=== PATIENT | female | born 1960 | race Caucasian/White ===

== ENCOUNTER 2022-08-25 15:00 | Emergency (ER) | payer MEDICARE, MEDICAID, SELFPAY ==
--- NOTE | ~2022-08-25 | XR_ITS ---
EXAMINATION: XR chest 2V DATE: 08/25/2022 15:37 INDICATION: A few weeks of cough TECHNIQUE: PA and lateral views of the chest were obtained. COMPARISON: None FINDINGS: The lungs are clear with no focal airspace opacities, pulmonary edema, pleural effusion or pneumothor ax. The cardiomediastinal silhouette is normal. Coronary artery stenting. Moderate thoracic spondylos is. IMPRESSION: 1. No acute cardiopulmonary disease. Reviewed, dictated and finalized at location A. RN [employer]
[2022-08-25 15:11] VITALS: BP 132/72; PULSE 81; RESP 16; TEMP 36.9; O2SAT 100
--- NOTE | 2022-08-25 15:11 | ED.URI ---
HPI - URI/Sore Throat General Chief Complaint: Back Pain/Injury Stated Complaint: Chest Congestion/Cough Time Seen by Provider: 08/25/22 15:12 Source: patient and RN notes reviewed History of Present Illness HPI Narrative: Patient is a 62-year-old female who presents to urgent care with complaints of a cough since . Patient states she has had a lot of chest congestion and has been taking Mucinex. Patient is possible. States that she has had intermittent shortness of breath but is having a lot of additional pain. Patient denies any recent fever, nausea or vomiting. Denies of chest pain. Patient has been in contact with both her PCP and her specialist from her kidney transplant. No other acute complaints. No acute distress noted. Patient aware of the plan of care. Some parts of this dictation were generated by voice recognition software and may contain typographical and/or grammatical inaccuracies. Related Data Home Medications Medication Instructions Recorded Confirmed aspirin 81 mg tablet,delayed 81 mg PO DAILY 08/25/22 08/25/22 release biotin 10,000 mcg capsule 10,000 mcg PO DAILY 08/25/22 08/25/22 exenatide microspheres 2 mg/0.85 See Rx Instructions .Route .COMPLEX 08/25/22 08/25/22 mL subcutaneous auto-injector ([employer]) insulin aspart U-100 100 unit/mL See Rx Instructions .Route .COMPLEX 08/25/22 08/25/22 subcutaneous solution (Novolog U-100 Insulin aspart) isosorbide mononitrate 30 mg 30 mg PO DAILY 08/25/22 08/25/22 tablet,extended release 24 hr metoprolol succinate 25 mg 25 mg PO BID 08/25/22 08/25/22 tablet,extended release 24 hr prednisone 5 mg tablet 5 mg PO DAILY 08/25/22 08/25/22 rosuvastatin 20 mg tablet 20 mg PO DAILY 08/25/22 08/25/22 tacrolimus 1 mg capsule, See Rx Instructions .Route .COMPLEX 08/25/22 08/25/22 immediate-release Allergies Allergy/AdvReac Type Severity Reaction Status Date / Time vancomycin Allergy Rash Verified 08/25/22 15:23 codeine AdvReac Nausea and Verified 08/25/22 15:24 Vomiting ibuprofen AdvReac Other Verified 08/25/22 15:25 Review of Systems Review of Systems: CONSTITUTIONAL: Denies fever, chills, or sweats. EYES: Denies visual changes, redness, or discharge. ENT: Denies rhinorrhea, congestion, sore throat, or otalgia. CARDIOVASCULAR: Reports of chest discomfort on movement RESPIRATORY: reports a productive cough and intermittent dyspnea GASTROINTESTINAL: Denies abdominal pain, nausea, vomiting, or diarrhea. GENITOURINARY: Denies dysuria or hematuria. SKIN: Denies rash or itching. MUSCULOSKELETAL: Denies back pain, joint pain, or myalgia. NEUROLOGIC: Denies headache, numbness, or weakness. All other systems reviewed are negative, except as documented in HPI. PMFSH Comments At the time of my signature, I reviewed and agree with the nursing past medical, surgical, social, and family history. There is no relevant family history pertinent to the patient complaint. Exam Narrative: GENERAL: This is a well-nourished, well-developed patient, in no apparent distress. HEAD: normocephalic, atraumatic. EYES: PERRL. Sclera clear/white. Vision is grossly intact. EARS: External ears normal NOSE: External nose normal with no obvious nasal discharge, nares without redness, no rhinorrhea. THROAT: Mucous membranes moist NECK: Neck supple, non-tender without lymphadenopathy, masses or thyromegaly. CARDIOVASCULAR: Regular rate and rhythm. positional chest pains, reproducible with palpation to the anterior right side RESPIRATORY: Clear to auscultation. slightly diminished right lower lobe SKIN: warm, intact with no suspicious lesions or rash, good texture and turgor. NEURO: awake, alert, and oriented to person, place and time. There were no obvious focal neurologic abnormalities. EXTREMITIES: No clubbing, cyanosis, or edema. Course Course Level of Care: Express Care Visit Vital Signs Vital signs: Vital Signs Temperature 98.4
--- NOTE | 2022-08-25 16:23 | ECG_ITS ---
Measurements Intervals [place] Rate: 74 P: 55 WI: 169 QRS: -2 QRSD: 92 T: 48 QT: 357 QTc: 397 Interpretive Statements SINUS RHYTHM NORMAL ECG NO PREVIOUS ECG AVAILABLE FOR COMPARISON Electronically Signed On 08-26-2022 8:06:07 [employer] by Jonathan Sepulveda D.O.
--- NOTE | 2022-08-25 19:24 | PC.NURSE ---
noted after discharge papers signed, original signature page was soiled
== END 2022-08-25 16:20 | disposition left against medical advice (07) ==
PROVIDERS: Emergency Provider Nurse Practitioner Family
DX: R06.02 Shortness of breath (principal); Z79.82 Long term (current) use of aspirin
CPT/HCPCS: 71046; 93005; 99213; G0463

== ENCOUNTER 2023-04-13 09:33 | Emergency (ER) | payer MEDICARE, MEDICAID, SELFPAY ==
[2023-04-13 09:42] VITALS: BP 77/56; PULSE 80; RESP 20; TEMP 36.6; O2SAT 98
--- NOTE | 2023-04-13 10:23 | ED.URI ---
HPI - URI/Sore Throat General Chief Complaint: Upper Respiratory Infection Stated Complaint: Body Aches/Chest Congestion Source: patient and RN notes reviewed Mode of arrival: ambulatory Limitations: no limitations History of Present Illness HPI Narrative: 63 y/o female presented for c/o fatigue, headache, body aches, sinus pressure/congestion, cough, fever/chills and diarrhea. Onset 3 days. Denies sob, wheezing, n/v. Not taking anything for symptoms. Endorses known contacts with covid. hx kidney transplant 3 years elicited complaint: cough Related Data Home Medications Medication Instructions Recorded Confirmed aspirin 81 mg tablet,delayed 81 mg PO DAILY 08/25/22 08/25/22 release biotin 10,000 mcg capsule 10,000 mcg PO DAILY 08/25/22 08/25/22 exenatide microspheres 2 mg/0.85 See Rx Instructions .Route .COMPLEX 08/25/22 08/25/22 mL subcutaneous auto-injector ([employer]) insulin aspart U-100 100 unit/mL See Rx Instructions .Route .COMPLEX 08/25/22 08/25/22 subcutaneous solution (Novolog U-100 Insulin aspart) isosorbide mononitrate 30 mg 30 mg PO DAILY 08/25/22 08/25/22 tablet,extended release 24 hr metoprolol succinate 25 mg 25 mg PO BID 08/25/22 08/25/22 tablet,extended release 24 hr prednisone 5 mg tablet 5 mg PO DAILY 08/25/22 08/25/22 rosuvastatin 20 mg tablet 20 mg PO DAILY 08/25/22 08/25/22 tacrolimus 1 mg capsule, See Rx Instructions .Route .COMPLEX 08/25/22 08/25/22 immediate-release Allergies Allergy/AdvReac Type Severity Reaction Status Date / Time vancomycin Allergy Rash Verified 08/25/22 15:23 codeine AdvReac Nausea and Verified 08/25/22 15:24 Vomiting ibuprofen AdvReac Other Verified 08/25/22 15:25 Review of Systems Review of Systems: CONSTITUTIONAL: Endorses malaise, chills, sweats, fever EYES: Denies visual changes, redness, or discharge ENT: Reports rhinorrhea, congestion, sinus pain,denies otalgia, sore throat CARDIOVASCULAR: Denies chest pain, palpitations, edema RESPIRATORY: Reports cough, post nasal drainage. Denies dyspnea GASTROINTESTINAL: Denies abdominal pain, nausea, vomiting, diarrhea SKIN: Denies rash or itching MUSCULOSKELETAL: Endorses myalgia NEUROLOGIC: Endorses headache [facility] Past Medical History Medical History (Updated 04/13/23 @ 10:49 by Eleonora Aranda APRN) Diabetes Surgical History Surgical History (Updated 04/13/23 @ 10:49 by Eleonora Aranda APRN) Renal transplant recipient Exam Narrative: GENERAL: Ill-appearing, nontoxic no acute distress. HEAD: Normocephalic EYES: PERRLA, conjunctivae clear ENT: Mucous membranes moist. TM pearly lopez with dull light reflex bilaterally; no tragal tenderness. NECK: Supple. No lymphadenopathy CHEST: Clear to auscultation, breath sounds equal. No wheezing, rhonchi, rales, or stridor. No respiratory distress, speaks in full sentences. HEART: Regular rate and rhythm. No murmur heard. SKIN: Warm, dry, no rash. NEURO: Alert and oriented x3. PSYCH: Normal mood and affect Course Course Emergency Course: Patient is aware of diagnosis, understands and agrees to treatment plan. Anticipatory guidance given. Patient agrees to follow-up as directed and is aware of reasons to seek care at the emergency department. Portions of this record may have been created with voice recognition software Level of Care: Express Care Visit Vital Signs Vital signs: Vital Signs Temperature 97.9 F 04/13/23 09:42 Pulse Rate 80 04/13/23 09:42 Respiratory Rate 20 04/13/23 09:42 Blood Pressure 77/56 L 04/13/23 09:42 Pulse Oximetry 98 04/13/23 09:42 Oxygen Delivery Room Air 04/13/23 09:42 Temperature 97.9 F 04/13/23 09:42 Pulse Rate 80 04/13/23 09:42 Respiratory Rate 20 04/13/23 09:42 Blood Pressure 77/56 L 04/13/23 09:42 Pulse Oximetry 98 04/13/23 09:42 Oxygen Delivery Room Air 04/13/23 09:42 reviewed MDM - URI/Sore Throat MDM Narrative Medic
== END 2023-04-13 10:49 | disposition home or self-care (01) ==
PROVIDERS: Emergency Provider Nurse Practitioner Family
DX: U07.1 COVID-19 (principal); E11.9 Type 2 diabetes mellitus without complications; Z79.82 Long term (current) use of aspirin; Z79.4 Long term (current) use of insulin; Z94.0 Kidney transplant status
CPT/HCPCS: 87426; 99213; C9803; G0463